=== PATIENT | female | born 1965 | race American Indian/Alaskan Native ===

== ENCOUNTER 2017-03-27 11:19 | Outpatient (CLI) | payer MEDICARE ==
--- NOTE | 2017-03-27 14:06 | Magnetic Resonance Report ---
MRI OF THE BRAIN WITHOUT CONTRAST: HISTORY: Headache PROCEDURE: Multiplanar, multisequence MR imaging of the brain without IV contrast was performed. FINDINGS: The brain parenchyma signal intensity and its black white interface are within normal limits on all sequences. No evidence for acute ischemia, hemorrhage or mass. No chronic infarct or extra-axial fluid collection. The midline structures are central. The basal cisterns are patent. Normal ventricular size. The orbital cavities and sella turcica demonstrate no abnormality. The visualized paranasal sinuses and mastoid air cells are well aerated. IMPRESSION: Unremarkable non-enhanced MRI of the brain.
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
== END 2017-03-27 11:20 | disposition home or self-care (01) ==
LOC: MRI 11:19
PROVIDERS: ATTEND Psychiatry & Neurology Neurology
DX: S01.90XS Unspecified open wound of unspecified part of head, sequela (principal); W34.09XS Accidental discharge from other specified firearms, sequela
CPT/HCPCS: 70250; 70551